=== PATIENT | male | born 1960 | race Caucasian/White ===

== ENCOUNTER 2017-01-18 23:26 | Observation (INO) | payer BC ==
[~2017-01-18] VITALS: Ht 182.9 cm; Wt 112.5 kg
[2017-01-19 00:08] LABS: HEMATOCRIT 44.7 % (39.2-51.8); HEMOGLOBIN 15.4 g/dL (13.7-18.0)
[2017-01-19 00:19] LABS: BLOOD UREA NITROGEN 16 mg/dL (7-18)
[2017-01-19 00:23] LABS: IS PT STATUS REG ER OR PRE ER? YES
[2017-01-19] MEDS ORDERED: ONDANSETRON ODT 4 MG PO PRN (01:00)
[2017-01-19] MEDS ORDERED: MORPHINE SULFATE 4 MG/ML, 1ML IVPush PRN (01:00)
[2017-01-19] MEDS ORDERED: ACETAMINOPHEN 325 MG TABLET PO PRN (01:00)
[2017-01-19] MEDS ORDERED: morphine SULFATE 10 MG/ML, 1ML IVPush PRN (01:00)
[2017-01-19] MEDS ORDERED: LABETALOL 5MG/ML, 20ML IVPush PRN (01:00)
[2017-01-19] MEDS ORDERED: ONDANSETRON 2MG/ML, 2ML IVPush PRN ×2 (01:00)
[2017-01-19] MEDS ORDERED: TEMAZEPAM 15 MG CAPSULE PO PRN (01:00)
[2017-01-19 01:28] VITALS: BP 150/79
[2017-01-19] MEDS ORDERED: LISINOPRIL 5 MG TABLET PO ONE (01:30)
[2017-01-19 03:02] VITALS: BP 150/73
[2017-01-19 03:19] LABS: IS PT STATUS REG ER OR PRE ER? NO
[2017-01-19] MEDS ORDERED: CARVEDILOL 3.125 MG TABLET PO SCH (06:00)
[2017-01-19] MEDS ORDERED: ASPIRIN 325 MG TABLET EC PO SCH (06:00)
[2017-01-19 06:10] LABS: HEMATOCRIT 44.3 % (39.2-51.8); HEMOGLOBIN 15.2 g/dL (13.7-18.0); WHITE BLOOD COUNT 10.6 x10^3/uL (3.4-10)
[2017-01-19 06:19] VITALS: BP 147/84
[2017-01-19 06:25] LABS: IS PT STATUS REG ER OR PRE ER? NO
[2017-01-19 06:34] VITALS: BP 175/90
[2017-01-19 08:02] VITALS: BP 154/84
[2017-01-19] MEDS ORDERED: REGADENOSON 0.4 MG/5 ML SYRINGE ONE (08:33)
[2017-01-19] MEDS ORDERED: FLU VACC QS2017-18 (36MOS+) UP/PF 0.5 ML IM-VACC ONE (11:30)
[2017-01-19 13:35] VITALS: BP 147/87
[2017-01-19] MEDS ORDERED: LISI-167 PO (14:31)
[2017-01-19] MEDS ORDERED: METO25TA35 PO (14:31)
[2017-01-19] MEDS ORDERED: SIMV20TA PO (15:09)
[2017-01-19] MEDS ORDERED: ATORVASTATIN 40 MG TABLET PO SCH (21:00)
== END 2017-01-19 15:41 | disposition home or self-care (01) ==
LOC: ED 23:40 → INTOOBSV 01-19 01:00 → EDIP 01-19 01:00 → 5SO 01-19 01:21
PROVIDERS: ADMIT Internal Medicine; ATTEND Internal Medicine
DX: I25.10 Atherosclerotic heart disease of native coronary artery without angina pectoris (principal); E11.9 Type 2 diabetes mellitus without complications; E78.5 Hyperlipidemia, unspecified; E66.9 Obesity, unspecified; Z82.49 Family history of ischemic heart disease and other diseases of the circulatory system; Z87.891 Personal history of nicotine dependence; Z72.89 Other problems related to lifestyle; Z23 Encounter for immunization
CPT/HCPCS: 36415; 78452; 80048; 80061; 82040; 83036; 84484; 85025; 90471; 90686; 93005; 93017; 99285; A9502; C9898; G0378; J2785